=== PATIENT | female | born 1945 | race Two or more races ===

== ENCOUNTER → 2019-04-15 | Day surgery (SDC) | payer OTHER ==
[~2019-04-15] MED LIST: COZAAR25 MG PO; GLIMEPIRIDE4 MG PO; INSULIN SYRING1 EA26; JANUMET XR 50-1 EAC1 PO; JARDIANCE25 MG PO; ZOCOR20 MG PO
== END | disposition home or self-care (01) ==
LOC: ADM 04-14 10:00 → CIR.AMB 06:41
DX: C50.412 Malignant neoplasm of upper-outer quadrant of left female breast (principal); C77.3 Secondary and unspecified malignant neoplasm of axilla and upper limb lymph nodes

== ENCOUNTER 2019-05-02 12:57 | Outpatient (CLI) | payer OTHER | END 2019-05-02 13:00 | disposition home or self-care (01) | LOC: SONOGRAMA 12:57 | DX: N61.1 Abscess of the breast and nipple (principal); N60.11 Diffuse cystic mastopathy of right breast; N60.12 Diffuse cystic mastopathy of left breast; C50.412 Malignant neoplasm of upper-outer quadrant of left female breast ==